=== PATIENT | male | born 1980 | race Caucasian/White ===

== ENCOUNTER 2020-04-07 19:16 | Emergency (ER) | payer MEDICAID ==
[~2020-04-07] VITALS: Ht 182.9 cm; Wt 81.8 kg
[~2020-04-07 19:16] MED LIST: DILT-36 PO; NO HOME MEDS
[2020-04-07] MEDS ORDERED: adenosine 3mg/ml 2ml vial IV ONE ×2 (19:25)
[2020-04-07] MEDS ORDERED: diltiazem 5mg/ml 5ml inj. IV ONE ×2 (19:30→19:40)
[2020-04-07] MEDS ORDERED: magnesium 2GM in 50ml NS 50 ML IV ONE (19:30)
[2020-04-07 19:35] LABS: BASOPHILS # (AUTO) 0.1 X10'3 (0-0.2); BASOPHILS % (AUTO) 0.4 % (0-1); EOSINOPHILS # (AUTO) 0.1 X10'3 (0-0.9); HEMATOCRIT 47.2 % (42.0-52.0); HEMOGLOBIN 15.4 g/dl (14.0-17.9); LYMPHOCYTES # (AUTO) 1.7 X10'3 (1.1-4.8); MEAN CORPUSCULAR HGB CONC 32.6 g/dL (33.0-36.5)
--- NOTE | 2020-04-07 19:35 | NUR ---
BUMPED OXYGEN UP TO 6 LNC 2LN WAS 88%
[2020-04-07 19:37] LABS: EOSINOPHILS % (AUTO) 0.4 % (0-6); LYMPHOCYTES % (AUTO) 12.4 % (21-51); MEAN CORPUSCULAR HEMOGLOBIN 29.5 PG (27.0-31.0); MEAN CORPUSCULAR VOLUME 90.5 FL (78-98); MEAN PLATELET VOLUME 11.1 FL (7.4-10.4); MONOCYTES # (AUTO) 1.7 X10'3 (0-0.9); MONOCYTES % (AUTO) 12.2 % (2-12); NEUTROPHILS # (AUTO) 10.4 X10'3 (1.8-7.7); NEUTROPHILS % (AUTO) 74.6 % (42-75); PLATELET COUNT 125 X10'3 (140-440); RED BLOOD COUNT 5.22 X10'6 (4.70-6.10); RED CELL DISTRIBUTION WIDTH 14.6 % (11.5-14.5); WHITE BLOOD COUNT 13.9 X10'3 (4.5-11.0)
[2020-04-07] MEDS ORDERED: FURO-149 PO (19:37)
[2020-04-07] MEDS ORDERED: RIVA20TA PO (19:37)
[2020-04-07] MEDS ORDERED: SOTA80TA46 PO (19:37)
[2020-04-07 19:47] LABS: ALANINE AMINOTRANSFERASE 170 U/L (12-78); ALBUMIN 3.8 G/DL (3.4-5.0); ALBUMIN/GLOBULIN RATIO 1.1 (1.1-1.5); ALKALINE PHOSPHATASE 108 IU/L (46-116); ANION GAP 10 (8-16); ASPARTATE AMINO TRANSFERASE 122 U/L (10-37); BILIRUBIN,TOTAL 1.4 MG/DL (0.1-1.0); BLOOD UREA NITROGEN 22 MG/DL (7-18); BUN/CREATININE RATIO 17.5 (5.4-32.0); CALCIUM 8.9 MG/DL (8.5-10.1); CHLORIDE 102 MMOL/L (99-107); CREATININE 1.26 MG/DL (0.60-1.10); GLUCOSE 116 MG/DL (70-104); POTASSIUM 4.2 MMOL/L (3.5-5.1); SODIUM 137 MMOL/L (135-145); TOTAL CARBON DIOXIDE 24.7 MMOL/L (24-32); TOTAL PROTEIN 7.2 G/DL (6.4-8.2); eGFR 63 ML/MIN
[2020-04-07 19:55] LABS: MAGNESIUM 1.6 MG/DL (1.5-2.4); PHOSPHORUS 2.6 MG/DL (2.3-4.5)
[2020-04-07 20:31] LABS: PLATELET ESTIMATE DECREASED
[2020-04-07 20:33] LABS: LARGE PLATELETS MODERATE
[2020-04-07 20:37] VITALS: BP 123/64
== END 2020-04-07 20:35 | disposition home or self-care (01) ==
LOC: ER 19:17
DX: I47.1 Supraventricular tachycardia (principal); R06.02 Shortness of breath; R07.9 Chest pain, unspecified; I48.91 Unspecified atrial fibrillation; F17.200 Nicotine dependence, unspecified, uncomplicated; F15.90 Other stimulant use, unspecified, uncomplicated; Z98.890 Other specified postprocedural states; Z79.899 Other long term (current) drug therapy
CPT/HCPCS: 36415; 71045; 80053; 83735; 83880; 84100; 84484; 85025; 93005; 96365; 96375; 99291; J0153; J3475; J3490